=== PATIENT | male | born 1990 | race African-American/Black ===

== ENCOUNTER 2023-11-15 19:38 | Observation (INO) ==
[2023-11-15 20:12] LABS: PCO2 Arterial 40 mmHg (35-45); PO2 Arterial 84 mmHg (80-100)
[2023-11-15 20:23] LABS: INR 1.09 (0.83-1.13)
[2023-11-15 20:41] LABS: High Sens Troponin Baseline 14 pg/mL (<20)
[2023-11-15 20:48] LABS: ABS Lymphocytes 1.9 10^3/uL (1.0-4.8); ABS Monocytes 0.8 10^3/uL (0.0-1.1); ABS Neutrophils 12.1 10^3/uL (1.5-7.6); ABS Nucleated RBC 0.02 10^3/ul; Eosinophil % 0.3 %; Hematocrit 43.6 % (38-53); Hemoglobin 14.8 g/dL (13.2-16.3); Lymphocyte % 12.8 %; Mean Corpuscular Hemoglobin 25.2 pg (27-33); Mean Platelet Volume 8.4 fL (7.5-11.2); Nucleated Red Blood Cells % 0.1 %/100WBC (0.0-0.8); Platelet Count 232 10^3/uL (150-450); Red Blood Count 5.89 10^6/uL (4.06-5.63); Red Cell Distribution Width 14.6 % (12-17); White Blood Count 14.8 10^3/uL (3.6-10.2)
[2023-11-15 21:00] LABS: ALT 30 U/L (7-52); Albumin/Globulin Ratio 1.5 (1-3); Alkaline Phosphatase 53 U/L (35-149); Anion Gap 7 mmol/L (2-16); Blood Urea Nitrogen 13 mg/dL (6-24); CO2 Carbon Dioxide 27 mmol/L (22-32); Calcium 8.6 mg/dL (8.6-10.3); Chloride 99 mmol/L (101-111); Creatine Kinase 3601 U/L (10-223); Creatinine, Serum 1.16 mg/dL (0.67-1.17); Globulin 2.7 g/dL (2-4); Glucose 169 mg/dL (70-100); Sodium 133 mmol/L (135-145); T4, Total 10.89 mcg/dL (6.09-12.23); TSH Ultra Thyroid Stim Horm 0.22 mcIU/mL (0.34-5.60); Total Bilirubin 0.8 mg/dL (0.2-1.0); Total Protein 6.7 g/dL (6.4-8.9); eGFR CKD-EPI 84.2 (>60)
[2023-11-15] MEDS: Lactated Ringers 1000 ml BAG 1,000 ML IV ONE (21:18)
[2023-11-15 21:44] LABS: Urine Benzodiazepine Screen None Detected (None Detect); Urine Cannabinoids Screen None Detected (None Detect); Urine Opiates Screen None Detected (None Detect)
[2023-11-15 21:47] LABS: High Sensitivity Troponin 1 Hr 24 pg/mL (<20)
[2023-11-15] MEDS: Iohexol 350 (CONTRAST) 500 ML MDV IV ONE (22:08)
[2023-11-16] MEDS: cefTRIAXone 1 gm/50 mL D5W 1 GM/50 ML BAG IV ONE (00:17)
[2023-11-16] MEDS: Lactated Ringers 1000 ml BAG 1,000 ML IV ONE (00:36)
[2023-11-16] MEDS: Azithromycin 500 mg/250 ml NS 500 MG/250 ML BAG IVPB ONE (00:51)
[2023-11-16] MEDS: Lactated Ringers 1000 ml BAG 1,000 ML IV SCH (03:39)
[2023-11-16] MEDS ORDERED: Acetaminophen IV 1 GM/100ML 1,000 MG/100 ML BAG IV PRN (04:53)
[2023-11-16 06:05] LABS: ABS Basophils 0.1 10^3/uL (0.0-0.1); ABS Lymphocytes 2.4 10^3/uL (1.0-4.8); ABS Monocytes 0.9 10^3/uL (0.0-1.1); ABS Neutrophils 9.6 10^3/uL (1.5-7.6); ABS Nucleated RBC 0.01 10^3/ul; Eosinophil % 0.2 %; Hemoglobin 14.3 g/dL (13.2-16.3); Lymphocyte % 18.2 %; Mean Corpuscular Hemoglobin 26.1 pg (27-33); Mean Corpuscular Hgb Conc 35.8 g/dL (31-36); Mean Corpuscular Volume 72.9 fL (80-97); Mean Platelet Volume 8.2 fL (7.5-11.2); Nucleated Red Blood Cells % 0.1 %/100WBC (0.0-0.8); Platelet Count 217 10^3/uL (150-450); Red Blood Count 5.49 10^6/uL (4.06-5.63); Red Cell Distribution Width 14.7 % (12-17)
[2023-11-16 06:34] LABS: Calcium 8.4 mg/dL (8.6-10.3); Creatinine, Serum 1.13 mg/dL (0.67-1.17); Potassium 3.8 mmol/L (3.5-5.0); eGFR CKD-EPI 86.9 (>60)
[2023-11-16 06:41] LABS: HIV 4th Generation Nonreactive (Nonreactive)
[2023-11-16 07:16] VITALS: BP 127/93
[2023-11-17] MEDS ORDERED: cefTRIAXone 1 gm/50 mL D5W 1 GM/50 ML BAG IV SCH (00:30)
== END 2023-11-16 01:36 | disposition left against medical advice (07) ==
LOC: EDHOLD 19:38 → ED 19:38 → EDHOLD 11-16 08:15
PROVIDERS: ADMIT Internal Medicine; ATTEND Internal Medicine